=== PATIENT | male | born 1990 | race Caucasian/White ===

== ENCOUNTER 2024-07-16 14:11 | Emergency (ER) | payer MEDICAID ==
[~2024-07-16] VITALS: Ht 190.5 cm; Wt 84.1 kg
[~2024-07-16 14:11] MED LIST: CLIN-214 PO; HYDR-4383 PO
[2024-07-16 14:17] VITALS: BP 135/78; PULSE 69; TEMP 97.8; O2SAT 98
[2024-07-16] MEDS ORDERED: HYDR-3965 PO (14:56)
[2024-07-16 15:20] VITALS: RESP 16
[2024-07-16] MEDS: ketorolac trometh 30MG/ML vial 30 MG/ML VIAL IM ONE (15:20)
== END 2024-07-16 15:41 | disposition home or self-care (01) ==
LOC: ER 14:12
DX: M25.571 Pain in right ankle and joints of right foot (principal); Z79.2 Long term (current) use of antibiotics; Z79.899 Other long term (current) drug therapy
CPT/HCPCS: 73610; 96372; 99283; J1885

== ENCOUNTER 2024-09-11 19:49 | Emergency (ER) | payer MEDICAID, OTHER ==
[~2024-09-11] VITALS: Ht 198.1 cm; Wt 113.6 kg
[2024-09-11 19:53] VITALS: BP 148/88; PULSE 114; RESP 17; TEMP 98.2; O2SAT 97
== END 2024-09-11 20:34 ==
LOC: ER 19:49
DX: S13.4XXA Sprain of ligaments of cervical spine, initial encounter (principal); Z79.899 Other long term (current) drug therapy; Z79.2 Long term (current) use of antibiotics; Z02.89 Encounter for other administrative examinations; V89.2XXA Person injured in unspecified motor-vehicle accident, traffic, initial encounter; Y93.89 Activity, other specified; Y92.89 Other specified places as the place of occurrence of the external cause; Y99.8 Other external cause status
CPT/HCPCS: 99283